=== PATIENT | female | born 1980 | race Caucasian/White ===

== ENCOUNTER 2017-05-01 16:41 | Emergency (ER) | payer MEDICAID ==
[2016-03-14 05:53] VITALS: BMI 22.7
[~2017-05-01 16:41] MED LIST: ATARAX 25 MG TA25 MG PO; DEPAKENE250 MG PO; FISH OIL 1,0001 CA1 PO; MOTRIN600 MG PO; NALTREXONE HCL50 MG PO; PERCOCET 5/3251 TA1 PO; PRENATAL COMPLE1 TAB PO; SUPER B COMPLE150 MG
[2017-05-01 18:17] LABS: BASOPHILS 0.5 % (0-2); EOSINOPHILS 1.5 % (0-7); HEMATOCRIT 43.6 % (36.0-48.0); HEMOGLOBIN 14.3 g/dL (12-16); IMMATURE GRANULOCYTES 0.3 % (0-5); LYMPHOCYTES 22.2 % (15-50); MCH 30.9 pg (26.0-34.0); MCHC 32.8 g/dL (31.0-37.0); MCV 94.2 fL (80.0-100.0); MEAN PLATELET VOLUME 9.9 fL (7.4-10.4); MONOCYTES 5.6 % (2-11); NEUTROPHILS 69.9 % (40-80); RBC 4.63 10x6/uL (4.00-5.40); RDW 14.8 % (11.5-14.5); WBC 10.9 10x3/uL (4.8-10.8)
[2017-05-01 18:21] LABS: PLATELET COUNT 146 10x3/uL (130-400)
[2017-05-01 18:33] LABS: CALC OSMOLALITY 284 mosm/kg (275-300); CALCIUM 8.4 mg/dL (8.5-10.1); CARBON DIOXIDE 29.8 mmol/L (21.0-32.0); CHLORIDE - SERUM 107 mmol/L (98-107); CREATININE - SERUM 0.6 mg/dL (0.6-1.3); GLUCOSE 76 mg/dL (74-106); POTASSIUM - SERUM 3.5 mmol/L (3.5-5.1); SODIUM 143 mmol/L (136-145); UREA NITROGEN 14 mg/dL (7-18); eGFR NON AFRICAN AMERICAN > 90 mL/min (90-120)
== END 2017-05-01 19:19 | disposition home or self-care (01) ==
LOC: D.ER 16:41
PROVIDERS: Nurse Practitioner Acute Care
DX: T67.5XXA Heat exhaustion, unspecified, initial encounter (principal); X58.XXXA Exposure to other specified factors, initial encounter; Y93.89 Activity, other specified; Y92.89 Other specified places as the place of occurrence of the external cause; F17.200 Nicotine dependence, unspecified, uncomplicated; F31.89 Other bipolar disorder

== ENCOUNTER → 2018-12-02 17:58 | Outpatient (CLI) | payer MEDICAID ==
[2016-03-14 05:53] VITALS: BMI 22.7
== END | disposition home or self-care (01) ==
LOC: D.MAMMO 11:00
DX: D64.9 Anemia, unspecified (principal)

== ENCOUNTER → 2019-11-20 13:59 | Outpatient (CLI) | payer MEDICAID ==
[2016-03-14 05:53] VITALS: BMI 22.7
== END | disposition home or self-care (01) ==
LOC: D.US 09:00
PROVIDERS: ATTEND Nurse Practitioner Family
DX: N63.21 Unspecified lump in the left breast, upper outer quadrant (principal)